=== PATIENT | male | born 1955 | race Caucasian/White ===

== ENCOUNTER → 2021-04-22 | Outpatient (CLI) | payer MEDICARE ==
[~2021-04-22] MED LIST: ASPRIN; LORTAB PO
== END ==
LOC: COL.PUL 07:26
DX: R06.00 Dyspnea, unspecified (principal)

== ENCOUNTER → 2022-07-09 | Outpatient (CLI) | payer MEDICARE, BC | LOC: COL.VAS 11:57 | DX: I49.9 Cardiac arrhythmia, unspecified (principal); R42 Dizziness and giddiness ==

== ENCOUNTER 2022-07-14 20:31 | Observation (INO) | payer MEDICARE, BC ==
[~2022-07-14] VITALS: Ht 175.3 cm; Wt 131.2 kg
[2022-07-14 21:02] LABS: BASO % 0.3 % (0.0-2.0); EOS # 0.3 K/mm3 (0.0-0.7); EOS % 2.8 % (0.0-4.0); GRAN # 9.3 K/mm3 (1.4-6.5); GRAN % 89.4 % (42.2-75.2); HEMATOCRIT 48.5 % (42.0-52.0); HEMOGLOBIN 16.1 g/dl (13.5-18.0); LYMPH # 0.3 K/mm3 (1.2-3.4); LYMPH % 2.7 % (20.0-51.0); MEAN CELL VOLUME 88 fl (80.0-100.0); MEAN CORPUSCULAR HEMOGLOBIN 29 pg (27-31); MEAN CORPUSCULAR HGB CONC 33 g/dl (33.0-37.0); MEAN PLATELET VOLUME 10.9 fl (7.4-10.4); MONO # 0.5 K/mm3 (0.1-0.6); MONO % 4.4 % (1.7-9.3); PLATELET COUNT 177 K/mm3 (130-400); RED BLOOD COUNT 5.53 M/mm3 (4.20-5.60); REDCELL DISTRIBUTION WIDTH-CV 14.1 % (11.5-14.5)
[2022-07-14 21:15] LABS: ALANINE AMINOTRANSFERASE 76 U/L (0-55); ALKALINE PHOSPHATASE 56 U/L (40-150); ANION GAP 15 mmol/L (7-16); AST,SGOT 39 U/L (5-34); BILIRUBIN,TOTAL 0.9 mg/dL (0.2-1.2); BLOOD UREA NITROGEN 21 mg/dL (8-26); CALCIUM 9.6 mg/dL (8.4-10.2); CARBON DIOXIDE 25 mmol/L (23-31); CHLORIDE 97 mmol/L (98-107); CREATININE, serum 1.06 mg/dL (0.72-1.25); GLUCOSE 152 mg/dL (70-99); POTASSIUM 3.8 mmol/L (3.5-4.5); SODIUM 137 mmol/L (136-145); TOTAL PROTEIN 7.9 gm/dL (6.2-8.1)
[2022-07-14 21:34] LABS: TROPONIN-I < 0.010 ng/mL (0.00-0.033)
[2022-07-14 22:26] LABS: ARTERIAL BLD GAS O2 SATURATION 96.4 % (92-100); ARTERIAL BLD GAS TCO2 CT 30.5; ARTERIAL BLOOD GAS BASE EXCESS 2.9 (-2-2); ARTERIAL BLOOD GAS PCO2 49.2 mmHg (35-45); ARTERIAL BLOOD GAS PO2 85.2 mmHg (80-100); ARTERIAL BLOOD GAS pH 7.39 (7.35-7.45)
[2022-07-15] VITALS (7 sets, daily range): BP systolic 125–138; BP diastolic 56–77; PULSE 70–111; TEMP 97.9–98.7
--- NOTE | 2022-07-15 02:29 | NUR ---
PATIENT ADMITTED TO ROOM 311 FROM THE EMERGENCY DEPARTMENT. CURRENTLY ON 3L OF OXYGEN WITH SATS IN THE MID 90'S. RECEIVING SOLU-MEDROL IV AND DOXYCYCLINE IVPB. ON TELE HE IS SR WITH PAC'S, PJC'S, AND PVC'S. HE'S USING THE URINAL DUE TO HIGHER NEEDS OF OXYGEN. GENERAL DIET. ACHS, TAKES METFORMIN AT HOME. TROPONINS TRENDING NORMAL, LESS THAN 0.01. CT CHEST WAS NEGATIVE. 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 HAS A PRIOR NORMAL ECHO. CARDS AND PULM NEEDING TO BE CONSULTED. CALL LIGHT IN REACH. BED IN LOWEST POSITION.
[2022-07-15 07:05] LABS: TROPONIN-I < 0.010 ng/mL (0.00-0.033)
[2022-07-15 07:13] LABS: ANION GAP 10 mmol/L (7-16); BLOOD UREA NITROGEN 18 mg/dL (8-26); CALCIUM 9.3 mg/dL (8.4-10.2); CARBON DIOXIDE 26 mmol/L (23-31); CHLORIDE 97 mmol/L (98-107); CREATININE, serum 0.95 mg/dL (0.72-1.25); GLUCOSE 207 mg/dL (70-99); SODIUM 133 mmol/L (136-145)
[2022-07-15 07:36] LABS: HEMATOCRIT 47.3 % (42.0-52.0); HEMOGLOBIN 16.1 g/dl (13.5-18.0); MEAN CELL VOLUME 86 fl (80.0-100.0); MEAN CORPUSCULAR HEMOGLOBIN 29 pg (27-31); MEAN CORPUSCULAR HGB CONC 34 g/dl (33.0-37.0); MEAN PLATELET VOLUME 11.6 fl (7.4-10.4); PLATELET COUNT 151 K/mm3 (130-400); RED BLOOD COUNT 5.48 M/mm3 (4.20-5.60); REDCELL DISTRIBUTION WIDTH-CV 14.1 % (11.5-14.5)
[2022-07-15 08:09] LABS: BAND 10 % (0-10); LYMPHOCYTE 1 % (20.0-51.0); NEUTROPHILS 89 % (42.0-75.2)
[2022-07-15 08:10] LABS: PLATELET ESTIMATE NORMAL (NORMAL)
[2022-07-15 09:24] LABS: CHOLESTEROL RISK RATIO 3.6
[2022-07-15] MEDS ORDERED: PRAVACHOL80 MG PO (10:08)
[2022-07-15] MEDS ORDERED: ZESTRIL 10MG10 MG PO (10:08)
[2022-07-15] MEDS ORDERED: ASPIRIN 81M81 MG/TA2 PO (10:09)
[2022-07-15] MEDS ORDERED: JANUVIA 100MG100 MG PO (10:10)
[2022-07-15] MEDS ORDERED: GLUCOTROL XL10 MG PO (10:10)
[2022-07-15] MEDS ORDERED: PROSCAR 5MG5 MG PO (10:11)
[2022-07-15] MEDS ORDERED: HCTZ 25MG TAB25 MG PO (10:11)
[2022-07-15] MEDS ORDERED: GLUCOPHAGE1000 MG PO (10:12)
--- NOTE | 2022-07-15 10:23 | NUR ---
Pt doing okay this morning. He has been up and showered with assistance from [employer] student. Pt having no complaints of pain at this time. Pt does report that he feels better. brought in home medications, med rec just completed, pharmacy made aware. Lung sounds are diminished and he does have pursed lipped breathing. O2 on per NC. New telemetry stickers applied, tele on after shower. Heart rate regular, stomach very rounded, active bowel sounds. INT to left forearm. Pt steady on his feet. Some bilateral lower extremity edema.
--- NOTE | 2022-07-15 10:34 | NUR ---
Initial visit; Patient and his thanked [employer] C[employer] for looking in on him and offering Spiritual Care. Patient mentioned no needs.
--- NOTE | 2022-07-15 10:56 | NUR ---
Pt alert/awake in bed. Pt has telemetry in place, heart rate in normal sinus rhythm at 90 beats per minute. Pt has O2 on at 2 L. Lung sounds diminshed at bases. Pt denies any complaints of SOA or pleuritic chest pain. 2+ edema noted to BLE. INT on L forearm patent, no redness, or swelling. Pt denies any complaints at this time. Call light within reach.
--- NOTE | 2022-07-15 11:07 | NUR ---
Socail Worker met with Patient and his , Peace at bedside to complete Care Managment assessment and discuss discharge planning. Patient reported to be discharging home today with own transportation. Patient verrified taht he lives in [place], [place] with his and is established with PCP, Dr. Saucedo, having Medicare and [facility] for insurance. PAtient's preferred outpatient pharmacy is [facility] in [place], [place]. Patient denies the use of O2, DME, and Home health services prior to admission.
--- NOTE | 2022-07-15 16:35 | NUR ---
RE: Pulmonary Rehab Keerthi Paula RN from [facility] spoke to RN. Discussed that pt would be appropriate referral for Pulmonary Rehab with diagnosis of COPD. Staff will f/u with referral or as outpatient/Pulm clinic.
--- NOTE | 2022-07-15 19:32 | NUR ---
This nurse assumed pt care at 11:30. Agree with student nurse assessment. Uneventful day. Pt now on 2L/NC. at bedside.
[2022-07-16 03:29] VITALS: BP 128/70; PULSE 91; TEMP 97.7
[2022-07-16 07:35] VITALS: BP 137/85; PULSE 103; TEMP 97.4
--- NOTE | 2022-07-16 08:10 | NUR ---
Assessment complete. O2 2L/NC. Reports SOA with exertion only. Tele SR. Denies pain or needs at this time.
[2022-07-16] MEDS ORDERED: RT ADVAIR 228 DISKUS IH (09:43)
[2022-07-16] MEDS ORDERED: MONODOX100 PO (09:44)
[2022-07-16] MEDS ORDERED: MEDROL 4MG DOSPA4 MG PO (09:47)
--- NOTE | 2022-07-16 10:53 | NUR ---
Customer Records Division Supervisor spoke with RT who advised patient will not qualify at this time for home oxygen. Patient to discharge home today.
[2022-07-16 11:21] VITALS: BP 130/65; PULSE 106; TEMP 97.9
--- NOTE | 2022-07-16 11:56 | NUR ---
Exercise Oximetry completed. Pt on RA. Tele d/c'd. INT LFA d/c'd with cath tip intact. Pt refuses insulin and lunch. Discharge instructions reviewed with patient. Pt verbalizes understanding. Pt discharged home with spouse via private vechicle.
== END 2022-07-16 12:05 | disposition home or self-care (01) ==
LOC: COL.ER 20:31 → MEDICAL 22:15
PROVIDERS: Nurse Practitioner; Personal Emergency Response Attendant; Student in an Organized Health Care Education/Training Program; ADMIT Student in an Organized Health Care Education/Training Program
DX: J96.01 Acute respiratory failure with hypoxia (principal); R07.89 Other chest pain; I10 Essential (primary) hypertension; E11.9 Type 2 diabetes mellitus without complications; G47.33 Obstructive sleep apnea (adult) (pediatric); Z20.822 Contact with and (suspected) exposure to COVID-19; E66.01 Morbid (severe) obesity due to excess calories; Z68.41 Body mass index [BMI] 40.0-44.9, adult; Z79.84 Long term (current) use of oral hypoglycemic drugs
CPT/HCPCS: G0378; J1650; J1815; J2920; J2930; Q9967

== ENCOUNTER → 2022-07-30 | Outpatient (CLI) | payer MEDICARE, BC ==
[~2022-07-30] MED LIST changes: +ASPIRIN 81M81 MG/TA2 PO; +GLUCOPHAGE1000 MG PO; +GLUCOTROL XL10 MG PO; +HCTZ 25MG TAB25 MG PO; +JANUVIA 100MG100 MG PO; +MEDROL 4MG DOSPA4 MG PO; +MONODOX100 PO; +PRAVACHOL80 MG PO; +PROSCAR 5MG5 MG PO; +RT ADVAIR 228 DISKUS IH; +ZESTRIL 10MG10 MG PO
== END ==
LOC: COL.PUL 07:23
DX: J96.01 Acute respiratory failure with hypoxia (principal)

== ENCOUNTER 2022-10-13 15:32 | Outpatient (RCR) | payer MEDICARE, BC | END 2022-10-14 | disposition home or self-care (01) | LOC: COL.CR | DX: J45.30 Mild persistent asthma, uncomplicated (principal) | CPT/HCPCS: G0238; G0239 ==

== ENCOUNTER 2023-01-26 15:36 | Outpatient (RCR) | payer MEDICARE, BC | END 2023-01-29 15:40 | disposition home or self-care (01) | LOC: COL.CR 15:36 | DX: J45.30 Mild persistent asthma, uncomplicated (principal) | CPT/HCPCS: G0239 ==

== ENCOUNTER → 2024-01-11 | Outpatient (CLI) | payer MEDICARE, BC | LOC: COL.RAD 13:30 | DX: K76.89 Other specified diseases of liver (principal); R79.89 Other specified abnormal findings of blood chemistry ==